=== PATIENT | male | born 1990 | race Caucasian/White ===

== ENCOUNTER 2020-05-15 09:29 | Observation (INO) | payer SELFPAY ==
[2020-05-15] MEDS ORDERED: ONDANSETRON 4 MG TAB.RAPDIS PO ONE (10:50)
[2020-05-15] MEDS ORDERED: NORMAL SALINE 1000 ML 1,000 ML IV ONE (10:50)
--- NOTE | 2020-05-15 10:50 | ER Document Report ---
ED Medical Screen (RME) - General Chief Complaint: Abdominal Pain Stated Complaint: ABDOMINAL PAIN Time Seen by Provider: 05/15/20 10:43 Mode of Arrival: Ambulatory Information source: Patient Notes: 29-year-old male presents to ED for complaint of right lower quadrant abdominal pain. He states last night it was a periumbilical and has moved to the right lower quadrant. He states he has been in here thinking he had appendicitis before and it was constipation. He has been passing gas and having bowel movements today. He states he has been nauseated with vomiting but no fever. He does smoke 15 cigarettes a day does not drink does use marijuana. Has a history of pilonidal cyst. He is alert oriented respirations regular nonlabored speaking in full sentences. He does have active bowel sounds and he has pain to palpation on the right lower quadrant radiating pain to the right lower quadrant when you palpate the rest of his stomach but no rebound tenderness. I have greeted and performed a rapid initial assessment of this patient. A comprehensive ED assessment and evaluation of the patient, analysis of test results and completion of medical decision making process will be conducted by an additional ED providers. - Related Data Allergies/Adverse Reactions: No Known Allergies Allergy (Verified 05/15/20 10:42) Physical Exam - Vital signs Vitals: Temp Pulse Resp BP Pulse Ox 98.3 F 79 18 151/92 H 99 05/15/20 09:47 05/15/20 09:47 05/15/20 09:47 05/15/20 09:47 05/15/20 09:47 Course - Vital Signs Vital signs: Temp Pulse Resp BP Pulse Ox 98.3 F 79 18 151/92 H 99 05/15/20 09:47 05/15/20 09:47 05/15/20 09:47 05/15/20 09:47 05/15/20 09:47
[2020-05-15 11:30] LABS: ABSOLUTE EOSINOPHILS # (AUTO) 0.2 10^3/uL (0.0-0.6); ABSOLUTE LYMPHOCYTES (AUTO) 2.6 10^3/uL (0.5-4.7); ABSOLUTE MONOCYTES (AUTO) 0.9 10^3/uL (0.1-1.4); ABSOLUTE NEUT (AUTO) 9.5 10^3/uL (1.7-8.2); APPEARANCE,URINE CLEAR; BASOPHILS % (AUTO) 0.3 % (0-2); BILIRUBIN,URINE NEGATIVE (NEGATIVE); COLOR,URINE YELLOW; EOSINOPHILS % (AUTO) 1.3 % (0-6); GLUCOSE, URINE NEGATIVE (NEGATIVE); HEMATOCRIT 46.3 % (37.9-51.0); HEMOGLOBIN 16.3 g/dL (13.5-17.0); KETONES,URINE TRACE mg/dL (NEGATIVE); LEUKOCYTE ESTERASE,URINE NEGATIVE (NEGATIVE); LYMPHOCYTES % (AUTO) 19.9 % (13-45); MEAN CORPUSCULAR HEMOGLOBIN 32.4 pg (27.0-33.4); MEAN CORPUSCULAR HGB CONC 35.3 g/dL (32.0-36.0); MEAN CORPUSCULAR VOLUME 92 fl (80-97); NITRITE,URINE NEGATIVE (NEGATIVE); PLATELET COUNT 284 10^3/uL (150-450); PROTEIN,URINE NEGATIVE (NEGATIVE); RED BLOOD COUNT 5.04 10^6/uL (4.35-5.55); RED CELL DISTRIBUTION WIDTH 13.9 % (11.5-14.0); SEGMENTED NEUTROPHILS % (AUTO) 71.5 % (42-78); TOTAL CELLS COUNTED % (AUTO) 100 %; URINE SPECIFIC GRAVITY 1.014; UROBILINOGEN,URINE NEGATIVE mg/dL (<2.0); WHITE BLOOD COUNT 13.3 10^3/uL (4.0-10.5)
[2020-05-15 11:48] LABS: ALBUMIN 5.2 g/dL (3.5-5.0); ALKALINE PHOSPHATASE 87 U/L (38-126); ANION GAP 10 (5-19); ASPARTATE AMINO TRANSFERASE 33 U/L (17-59); BILIRUBIN,TOTAL 0.9 mg/dL (0.2-1.3); BLOOD UREA NITROGEN 10 mg/dL (7-20); CARBON DIOXIDE 28 mmol/L (22-30); CHLORIDE 101 mmol/L (98-107); GLUCOSE 98 mg/dL (75-110); POTASSIUM 4.4 mmol/L (3.6-5.0); TOTAL PROTEIN 8.4 g/dL (6.3-8.2)
--- NOTE | 2020-05-15 13:39 | RADIOLOGY REPORT (SQ) ---
EXAM DESCRIPTION: CT ABD/PELVIS WITH IV ORAL IMAGES COMPLETED DATE/TIME: 05/15/2020 1:29 pm REASON FOR STUDY: rlq abdominal pain COMPARISON: None. TECHNIQUE: CT scan of the abdomen and pelvis performed with intravenous and oral contrast using domenica katie scanning technique with dynamic intravenous contrast injection. Images reviewed with lung, soft t issue, and bone windows. Reconstructed coronal and sagittal MPR images reviewed. Delayed images for e valuation of the urinary system also acquired. All images stored on PACS. All CT scanners at this facility use dose modulation, iterative reconstruction, and/or weight based d osing when appropriate to reduce radiation dose to as low as reasonably achievable (ALARA). [facility]: Dose Right [facility]: CareDose [facility]: Dose Right [facility]: Teradose 4D [facility]: Sentri CONTRAST TYPE AND DOSE: contrast/concentration: Isovue 350.00 mmol/ml; Total Contrast Delivered: 88. 9 ml; Total Saline Delivered: 65.9 ml RENAL FUNCTION: BUN 10 creatinine 0.65. RADIATION DOSE: CT Rad equipment meets quality standard of care and radiation dose reduction techniq ues were employed. CTDIvol: NaN - NaN mGy. DLP: 0 mGy-cm.. LIMITATIONS: None. FINDINGS: LOWER CHEST: No significant findings. No nodules or infiltrates. LIVER: Normal size. No masses. No dilated ducts. SPLEEN: Normal size. No focal lesions. PANCREAS: No masses. No significant calcifications. No adjacent inflammation or peripancreatic fluid collections. Pancreatic duct not dilated. GALLBLADDER: No identified stones by CT criteria. No inflammatory changes to suggest cholecystitis. ADRENAL GLANDS: No significant masses or asymmetry. RIGHT KIDNEY AND URETER: No solid masses. No significant calcification. No hydronephrosis or hydroure ter. LEFT KIDNEY AND URETER: No solid masses. No significant calcification. No hydronephrosis or hydrouret er. AORTA AND VESSELS: No aneurysm. No dissection. Renal arteries, SMA, celiac without stenosis. RETROPERITONEUM: No retroperitoneal adenopathy, hemorrhage or masses. BOWEL AND PERITONEAL CAVITY: No obstruction. No visualized masses. No free fluid. No inflammatory ch anges or thickening of bowel wall. APPENDIX: The appendix is mildly thickened, measuring 9 mm. Best demonstrated on coronal series 601, image 26 and axial series 3, image 54. Thickening of the wall with faint stranding in the adjacent tissues. No abnormal fluid collection. PELVIS: No significant masses. Normal bladder. No free fluid. ABDOMINAL WALL: No masses. No hernias. BONES: No significant or acute findings. OTHER: No other significant finding. IMPRESSION: MILD INFLAMMATORY CHANGES INVOLVING THE APPENDIX SUSPICIOUS FOR EARLY APPENDICITIS. NO OTHER SIGNIFICANT OR ACUTE FINDINGS IN THE ABDOMEN OR PELVIS. TECHNICAL DOCUMENTATION: JOB ID: [id number] Quality ID # [id number]: Final reports with documentation of one or more dose reduction techniques (e.g., Au tomated exposure control, adjustment of the mA and/or kV according to patient size, use of iterative reconstruction technique) 2010 [employer]- All Rights Reserved Reading location - IP/workstation name: [email or web address]
--- NOTE | 2020-05-15 14:16 | ER Document Report ---
ED GI/ - General Chief Complaint: Lower Abdominal Pain Stated Complaint: ABDOMINAL PAIN Time Seen by Provider: 05/15/20 10:43 Mode of Arrival: Ambulatory Information source: Patient Notes: 29-year-old male presents to the emergency department with a 2-day history of abdominal pain which is localized to the right lower quadrant. He notes that he has had some nausea, denies fever or diarrhea. He is concerned that he may have appendicitis. Last meal was last night. He denies allergies to medications. - Related Data Allergies/Adverse Reactions: No Known Allergies Allergy (Verified 05/15/20 10:42) Past Medical History - General Information source: Patient - Social History Smoking Status: Current Every Day Smoker Chew tobacco use (# tins/day): No Frequency of alcohol use: None Drug Abuse: Marijuana Family History: Reviewed & Not Pertinent Patient has homicidal ideation: No Review of Systems - Review of Systems Notes: Constitutional: Negative for fever. HENT: Negative for sore throat. Eyes: Negative for visual changes. Cardiovascular: Negative for chest pain. Respiratory: Negative for shortness of breath. Gastrointestinal: See HPI Genitourinary: Negative for dysuria. Musculoskeletal: Negative for back pain. Skin: Negative for rash. Neurological: Negative for headaches, weakness or numbness. 10 point ROS negative except as marked above and in HPI. Physical Exam - Vital signs Vitals: Temp Pulse Resp BP Pulse Ox 98.3 F 79 18 151/92 H 99 05/15/20 09:47 05/15/20 09:47 05/15/20 09:47 05/15/20 09:47 05/15/20 09:47 - Notes Notes: PHYSICAL EXAMINATION: Physical Exam: General: Well-nourished well-developed in no acute distress HEENT: NC/AT, pupils equal round and reactive to light, MM moist,nares clear, oropharynx clear, airway patent Neck: supple, no adenopathy, no masses. Good range of motion Lungs: clear, no wheezing, no rales no rhonchi CVS: Regular rate and rhythm no murmur gallop or rub Abdomen: Soft, active, tenderness in the right lower quadrant at McBurney's point, + guarding, positive rebound no mass Ext: No edema, clubbing or cyanosis. Neuro: Alert and responsive, moving all 4 extremities on command, cranial nerves intact, no focal findings Skin: Intact no open lesions, no rash Course - Re-evaluation Re-evalutation: 05/15/20 14:13 Differential diagnosis Appendicitis, enteritis, lymphadenitis 05/15/20 14:17 I have discussed the findings of the CT scan with the patient explained that he does have acute appendicitis. He will need to have surgical procedure to remove the appendix. The patient is in agreement with the plan. The surgeon on-call, Dr. Tirado was contacted and they will see the patient in the emergency department. - Vital Signs Vital signs: Temp Pulse Resp BP Pulse Ox 97.4 F 71 17 149/93 H 100 05/15/20 19:00 05/15/20 19:00 05/15/20 19:00 05/15/20 19:00 05/15/20 19:00 - Laboratory Result Diagrams: 05/15/20 10:50 05/15/20 10:50 Laboratory results interpreted by me: 05/15/20 05/15/20 05/15/20 10:50 10:50 10:50 WBC 13.3 H Absolute Neuts (auto) 9.5 H Total Protein 8.4 H Albumin 5.2 H Urine Ketones TRACE H Urine Blood SMALL H 05/15/20 14:13 I have reviewed laboratory data and used this information for the treatment decisions regarding the patient. - Diagnostic Test Radiology reviewed: Image reviewed, Reports reviewed Radiology results interpreted by me: 05/15/20 14:13 Abdomen/Pelvis CT 05/15/20 10:47 IMPRESSION: MILD INFLAMMATORY CHANGES INVOLVING THE APPENDIX SUSPICIOUS FOR EARLY APPENDICITIS. NO OTHER SIGNIFICANT OR ACUTE FINDINGS IN THE ABDOMEN OR PELVIS. Discharge - Discharge Clinical Impression: Right lower quadrant abdominal pain Acute appendicitis Qualifiers: Acute appendicitis type: with localized peritonitis Appendicitis gangrene presence: without gangrene Appendicitis perforation presence: without perforation Appendicitis abscess presence: without abscess Qualified Code(s): K35.30 - Acute appendicitis with localized peritonitis, without perforation or gangrene Condition: Good Disposition: ADMITTED INPATIENT Admitting Provider: Surgicalist - Dr. Tirado Unit Admitted: Surgical Floor
[2020-05-15] MEDS ORDERED: ROCURONIUM BROMIDE INJ 50 MG/5 ML VIAL IV ONE (14:34)
[2020-05-15] MEDS ORDERED: SUCCINYLCHOLINE CHLORIDE INJ 200 MG/10 ML VIAL ONE (14:34)
--- NOTE | 2020-05-15 14:54 | PDOC CONSULTATION ---
Consultation Consult Date: 05/15/20 Provider Consulted: BON QUEZADA Consult reason:: acute appendicitis History of Present Illness Admission Date/PCP: 05/15/20 14:24 Patient complains of: Abdominal pains History of Present Illness: EMELIA MARTÍNEZ is a 29 year old male started complaining of epigastric pains around 6:00 last night with nausea. The pains localized in the right lower quadrant around 10 PM and still with nausea and some chills and vomiting. Went to ED this morning and found to have acute appendicitis on the CT scan. Past Medical History Medical History: None Past Surgical History Past Surgical History: Reports: None Social History Smoking Status: Current Every Day Smoker Electronic Cigarette use?: No - Advance Directive Resuscitation Status: Full Code Family History Family History: Reviewed & Not Pertinent Parental Family History Reviewed: Yes Children Family History Reviewed: No Sibling(s) Family History Reviewed.: No Medication/Allergy Home Medications: No Home Medications 05/15/20 Allergies/Adverse Reactions: No Known Allergies Allergy (Verified 05/15/20 10:42) Review of Systems Constitutional: PRESENT: as per HPI Eyes: PRESENT: other - No visual or hearing problems Cardiovascular: PRESENT: other - no chest pains/cough Gastrointestinal: PRESENT: abdominal pain, diarrhea, nausea, vomiting Physical Exam Vital Signs: Temp Pulse Resp BP Pulse Ox 98.3 F 79 18 151/92 H 99 05/15/20 09:47 05/15/20 09:47 05/15/20 09:47 05/15/20 09:47 05/15/20 09:47 Intake & Output 05/14/20 05/15/20 05/16/20 06:59 06:59 06:59 Intake Total 1000 Balance 1000 Weight 78 kg General appearance: PRESENT: mild distress Head exam: PRESENT: atraumatic Eye exam: PRESENT: conjunctiva pink Mouth exam: PRESENT: moist Neck exam: PRESENT: full ROM Cardiovascular exam: PRESENT: RRR Pulses: PRESENT: normal radial pulses Vascular exam: PRESENT: normal capillary refill GI/Abdominal exam: PRESENT: soft, tenderness - Right lower quadrant Rectal exam: PRESENT: deferred Extremities exam: PRESENT: full ROM Musculoskeletal exam: PRESENT: full ROM Neurological exam: PRESENT: alert, oriented to person, oriented to place, oriented to situation Psychiatric exam: PRESENT: appropriate affect Skin exam: PRESENT: normal color, warm Results Laboratory Results: 05/15/20 10:50 05/15/20 10:50 05/15/20 05/15/20 05/15/20 10:50 10:50 10:50 WBC 13.3 H RBC 5.04 Hgb 16.3 Hct 46.3 MCV 92 MCH 32.4 MCHC 35.3 RDW 13.9 Plt Count 284 Seg Neutrophils % 71.5 Sodium 139.4 Potassium 4.4 Chloride 101 Carbon Dioxide 28 Anion Gap 10 BUN 10 Creatinine 0.65 Est GFR ( Amer) > 60 Glucose 98 Calcium 10.0 Total Bilirubin 0.9 AST 33 Alkaline Phosphatase 87 Total Protein 8.4 H Albumin 5.2 H Lipase 51.5 Urine Color YELLOW Urine Appearance CLEAR Urine pH 6.0 Ur Specific [place] 1.014 Urine Protein NEGATIVE Urine Glucose (UA) NEGATIVE Urine Ketones TRACE H Urine Blood SMALL H Urine Nitrite NEGATIVE Ur Leukocyte Esterase NEGATIVE Urine WBC (Auto) 0 Urine RBC (Auto) 3 Impressions: Abdomen/Pelvis CT 05/15/20 10:47 IMPRESSION: MILD INFLAMMATORY CHANGES INVOLVING THE APPENDIX SUSPICIOUS FOR EARLY APPENDICITIS. NO OTHER SIGNIFICANT OR ACUTE FINDINGS IN THE ABDOMEN OR PELVIS. Assessment & Plan - Diagnosis (1) Acute appendicitis Qualifiers: Acute appendicitis type: with localized peritonitis Appendicitis gangrene presence: without gangrene Appendicitis perforation presence: without perforation Appendicitis abscess presence: without abscess Qualified Code(s): K35.30 - Acute appendicitis with localized peritonitis, without perforation or gangrene Is this a current diagnosis for this admission?: Yes (2) Right lower quadrant abdominal pain Is this a current diagnosis for this admission?: Yes - Time Time Spent: 30 to 50 Minutes Anticipated discharge: Home Anticipated DC Timeframe: within 48 hours - Inpatient Certification Medical Necessity: Need For IV Fluids, Need for IV Antibiotics, Need for Surgery, Risk of Complication if Not Cared For in Hospital - Plan Summary Plan Summary: 29-year-old male started complaining of epigastric pains last night at 6 PM which localized in the right lower quadrant around 10 PM. There was associated nausea and chills. This morning he had some mild diarrhea and vomiting. Went to ED where a CT scan of the abdomen showed acute appendicitis. His white count slightly elevated. Is tender in the right lower quadrant. Patient for laparoscopic appendectomy. We will start IV antibiotics.
[2020-05-15] MEDS: RINGERS SOLUTION,LACTATED 1,000 ML IV PRN (19:04)
[2020-05-15] MEDS ORDERED: GLUCAGON,HUMAN RECOMB 1 MG INJ SUBCUT PRN (19:35)
[2020-05-15] MEDS ORDERED: DEXTROSE 40% GEL 15 GM TUBE PO PRN ×2 (19:35)
[2020-05-15] MEDS ORDERED: DEXTROSE 50%-WATER 25 GM/50 ML DISP.SYRIN IV PRN ×2 (19:35)
[2020-05-15] MEDS: PIPERACILLIN SODIUM/TAZOBACTAM 3.375 GM in NORMAL SALINE 100 ML IV SCH (20:34)
[2020-05-15] MEDS ORDERED: ONDANSETRON HCL INJ/PF 4 MG/2 ML SDV ONE (22:40)
[2020-05-15] MEDS ORDERED: DEXAMETHASONE SOD PHOSPHATE INJ 4 MG/1 ML VIAL ONE (22:40)
[2020-05-15] MEDS ORDERED: FENTANYL CITRATE INJ/PF 100 MCG/2 ML AMPUL ONE (22:40)
[2020-05-15] MEDS ORDERED: MIDAZOLAM 2 MG/2 ML INJ ONE (22:40)
[2020-05-15] MEDS ORDERED: KETOROLAC TROMETHAMINE 60 MG/2 ML SDV ONE (22:40)
[2020-05-15] MEDS ORDERED: MORPHINE SULFATE 10 MG/ML INJ ONE (22:41)
[2020-05-15] MEDS ORDERED: PROPOFOL INJ 200 MG/20 ML VIAL IV ONE (22:41)
[2020-05-15] MEDS ORDERED: BUPIVACAINE HCL 0.25% /EPINEPHRINE INJ/PF 30 ML SDV ONE (22:47)
[2020-05-15] MEDS ORDERED: OXYCODONE-ACETAMINOPHEN 5-325 MG TABLET PO PRN ×2 (23:34)
[2020-05-15] MEDS ORDERED: PROMETHAZINE HCL INJ 25 MG/1 ML VIAL IV PRN (23:34)
[2020-05-15] MEDS ORDERED: ONDANSETRON HCL INJ/PF 4 MG/2 ML SDV IV PRN (23:34)
[2020-05-15] MEDS ORDERED: DIPHENHYDRAMINE HCL 50 MG/ML VIAL IV PRN (23:34)
[2020-05-15] MEDS ORDERED: MORPHINE SULFATE 10 MG/ML INJ IV PRN ×2 (23:34→23:52)
[2020-05-15] MEDS ORDERED: FENTANYL CITRATE INJ/PF 100 MCG/2 ML AMPUL IV PRN ×3 (23:34)
[2020-05-15] MEDS ORDERED: MEPERIDINE HCL/PF INJ 25 MG/1 ML DISP.SYRIN IV PRN (23:34)
[2020-05-15] MEDS ORDERED: KETOROLAC TROMETHAMINE INJ/PF 30 MG/1 ML SDV IV SCH (23:45)
--- NOTE | 2020-05-16 | Operative Report ---
Operative Report DATE OF SURGERY: 05/15/20 PREOPERATIVE DIAGNOSIS: Acute appendicitis POSTOPERATIVE DIAGNOSIS: Same OPERATION: Laparoscopic appendectomy SURGEON: BON QUEZADA ANESTHESIA: GA TISSUE REMOVED OR ALTERED: Appendix COMPLICATIONS: None ESTIMATED BLOOD LOSS: 10 cc QUANTITATIVE BLOOD LOSS: 10 INTRAOPERATIVE FINDINGS: Acute appendicitis PROCEDURE: After adequate general anesthesia patient was placed in supine position and the abdomen prepped and draped in the usual sterile fashion. Appropriate timeout was then called. Infraumbilical incision made and the fascia identified and grabbed with Tonny clamps and divided between the Tonny clamps. 0 Vicryl sutures were placed as stay sutures on each side of the fascia. The fascial defect was then probed with a hemostat and dilated. The Gil trocar was then inserted to the fascia to the abdominal cavity and CO2 insufflated to a pressure about 15 mmHg. Next 2 other trochars were placed a 5 mm in the suprapubic and a 12 mm in the left lower quadrant under direct vision. The appendix was then then identified and lifted up and the distal end appears to be inflamed. The base of the appendix appears to be not involved. The mesoappendix was serially clipped and divided. Base of the appendix was then stapled with two 5 mm Endo MELVI blue load. The appendix was then pulled out through the left lower quadrant port and the port pulled out on the abdominal cavity with the appendix in it. Appendiceal stump was inspected and no evidence of active bleeding noted. All the trochars were then removed and CO2 allowed to come out of the trocar sites. The infraumbilical fascial defect was then closed with a [id number] suture using 0 Vicryl and the 2 stay sutures tied together for better closure. Local anesthesia infiltrated on the fashion on the skin incisions. The skin incisions were then closed with running subcuticular 4-0 Vicryl undyed. Steri-Strips placed over the operative sites. Needle instrument sponge count were all correct and estimated blood loss was about 10 cc. Patient tolerated procedure well and brought to the PACU in satisfactory condition extubated.
[2020-05-16] MEDS: RINGERS SOLUTION,LACTATED 1,000 ML IV PRN ×2 (01:38→06:23)
[2020-05-16] MEDS: PIPERACILLIN SODIUM/TAZOBACTAM 3.375 GM in NORMAL SALINE 100 ML IV SCH ×2 (03:29→09:34)
--- NOTE | 2020-05-16 11:56 | PDOC DISCHARGE SUMMARY ---
General - Admit/Disc Date/PCP Admission Date/Primary Care Provider: 05/15/20 14:24 Discharge Date: 05/16/20 - Discharge Diagnosis Final Diagnosis: Acute appendicitis - Additional Information Resuscitation Status: Full Code Discharge Diet: Regular Discharge Activity: Activity As Tolerated Home Medications: No Home Medications 05/15/20 History of Present Illiness History of Present Illness: EMELIA MARTÍNEZ is a 29 year old male started complaining of epigastric pains around 6:00 last night with nausea. The pains localized in the right lower quadrant around 10 PM and still with nausea and some chills and vomiting. Went to ED this morning and found to have acute appendicitis on the CT scan. Hospital Course Hospital Course: Underwent laparoscopic appendectomy on May 15, 2020 for acute appendicitis. Patient did very well postoperatively. Physical Exam Vital Signs: Temp Pulse Resp BP Pulse Ox 97.4 F 59 L 16 134/68 H 99 05/16/20 10:00 05/16/20 08:02 05/16/20 08:02 05/16/20 08:02 05/16/20 08:02 Intake & Output 05/15/20 05/16/20 05/17/20 06:59 06:59 06:59 Intake Total 4200 Output Total 15 Balance 4185 Weight 69.8 kg Results Laboratory Results: WBC 13.3 10^3/uL (4.0-10.5) H 05/15/20 10:50 RBC 5.04 10^6/uL (4.35-5.55) 05/15/20 10:50 Hgb 16.3 g/dL (13.5-17.0) 05/15/20 10:50 Hct 46.3 % (37.9-51.0) 05/15/20 10:50 MCV 92 fl (80-97) 05/15/20 10:50 MCH 32.4 pg (27.0-33.4) 05/15/20 10:50 MCHC 35.3 g/dL (32.0-36.0) 05/15/20 10:50 RDW 13.9 % (11.5-14.0) 05/15/20 10:50 Plt Count 284 10^3/uL (150-450) 05/15/20 10:50 Lymph % (Auto) 19.9 % (13-45) 05/15/20 10:50 [place] % (Auto) 7.0 % (3-13) 05/15/20 10:50 Eos % (Auto) 1.3 % (0-6) 05/15/20 10:50 Baso % (Auto) 0.3 % (0-2) 05/15/20 10:50 Absolute Neuts (auto) 9.5 10^3/uL (1.7-8.2) H 05/15/20 10:50 Absolute Lymphs (auto) 2.6 10^3/uL (0.5-4.7) 05/15/20 10:50 Absolute Monos (auto) 0.9 10^3/uL (0.1-1.4) 05/15/20 10:50 Absolute Eos (auto) 0.2 10^3/uL (0.0-0.6) 05/15/20 10:50 Absolute Basos (auto) 0.0 10^3/uL (0.0-0.2) 05/15/20 10:50 Seg Neutrophils % 71.5 % (42-78) 05/15/20 10:50 Sodium 139.4 mmol/L (137-145) 05/15/20 10:50 Potassium 4.4 mmol/L (3.6-5.0) 05/15/20 10:50 Chloride 101 mmol/L (98-107) 05/15/20 10:50 Carbon Dioxide 28 mmol/L (22-30) 05/15/20 10:50 Anion Gap 10 (5-19) 05/15/20 10:50 BUN 10 mg/dL (7-20) 05/15/20 10:50 Creatinine 0.65 mg/dL (0.52-1.25) 05/15/20 10:50 Est GFR ( Amer) > 60 (>60) 05/15/20 10:50 Est GFR (MDRD) Non-Af > 60 (>60) 05/15/20 10:50 Glucose 98 mg/dL (75-110) 05/15/20 10:50 Calcium 10.0 mg/dL (8.4-10.2) 05/15/20 10:50 Total Bilirubin 0.9 mg/dL (0.2-1.3) 05/15/20 10:50 Direct Bilirubin 0.0 mg/dL (0.0-0.4) 05/15/20 10:50 Neonat Total Bilirubin Not Reportable 05/15/20 10:50 Neonat Direct Bilirubin Not Reportable 05/15/20 10:50 Neonat Indirect Bili Not Reportable 05/15/20 10:50 AST 33 U/L (17-59) 05/15/20 10:50 ALT 22 U/L (<50) 05/15/20 10:50 Alkaline Phosphatase 87 U/L (38-126) 05/15/20 10:50 Total Protein 8.4 g/dL (6.3-8.2) H 05/15/20 10:50 Albumin 5.2 g/dL (3.5-5.0) H 05/15/20 10:50 Lipase 51.5 U/L (23-300) 05/15/20 10:50 Urine Color YELLOW 05/15/20 10:50 Urine Appearance CLEAR 05/15/20 10:50 Urine pH 6.0 (5.0-9.0) 05/15/20 10:50 Ur Specific [place] 1.014 05/15/20 10:50 Urine Protein NEGATIVE mg/dL (NEGATIVE) 05/15/20 10:50 Urine Glucose (UA) NEGATIVE mg/dL (NEGATIVE) 05/15/20 10:50 Urine Ketones TRACE mg/dL (NEGATIVE) H 05/15/20 10:50 Urine Blood SMALL (NEGATIVE) H 05/15/20 10:50 Urine Nitrite NEGATIVE (NEGATIVE) 05/15/20 10:50 Urine Bilirubin NEGATIVE (NEGATIVE) 05/15/20 10:50 Urine Urobilinogen NEGATIVE mg/dL (<2.0) 05/15/20 10:50 Ur Leukocyte Esterase NEGATIVE (NEGATIVE) 05/15/20 10:50 Urine WBC (Auto) 0 /HPF 05/15/20 10:50 Urine RBC (Auto) 3 /HPF 05/15/20 10:50 Urine Mucus (Auto) OCC /LPF 05/15/20 10:50 Urine Ascorbic Acid NEGATIVE (NEGATIVE) 05/15/20 10:50 SARS-CoV-2 (PCR) NEGATIVE (NEGATIVE) 05/15/20 18:00 Impressions: Abdomen/Pelvis CT 05/15/20 10:47 IMPRESSION: MILD INFLAMMATORY CHANGES INVOLVING THE APPENDIX SUSPICIOUS FOR EARLY APPENDICITIS. NO OTHER SIGNIFICANT OR ACUTE FINDINGS IN THE ABDOMEN OR PELVIS. Plan Time Spent: Less than 30 Minutes
[2020-05-16 12:31] VITALS: BP 133/68
--- NOTE | 2020-05-18 07:59 | PDOC H&P ---
History of Present Illness Admission Date/PCP: 05/15/20 14:24 Patient complains of: Abdominal pain History of Present Illness: EMELIA MARTÍNEZ is a 29 year old male started complaining of epigastric pains around 6:00 last night with nausea. The pains localized in the right lower quadrant around 10 PM and still with nausea and some chills and vomiting. Went to ED this morning and found to have acute appendicitis on the CT scan. Past Medical History Medical History: None Psychiatric Medical History: Denies: Depression Past Surgical History Past Surgical History: Reports: None Social History Smoking Status: Current Every Day Smoker Electronic Cigarette use?: No Drugs: Marijuana - Advance Directive Resuscitation Status: Full Code Family History Family History: Reviewed & Not Pertinent Parental Family History Reviewed: Yes Children Family History Reviewed: No Sibling(s) Family History Reviewed.: No Medication/Allergy Home Medications: No Home Medications 05/15/20 Allergies/Adverse Reactions: No Known Allergies Allergy (Verified 05/15/20 10:42) Review of Systems Constitutional: PRESENT: as per HPI Gastrointestinal: PRESENT: abdominal pain, nausea Physical Exam Vital Signs: Temp Pulse Resp BP Pulse Ox 97.8 F 61 16 133/68 H 97 05/16/20 12:30 05/16/20 12:30 05/16/20 12:30 05/16/20 12:30 05/16/20 12:30 Intake & Output 05/17/20 05/18/20 05/19/20 06:59 06:59 06:59 Intake Total 1400 Balance 1400 General appearance: PRESENT: mild distress Eye exam: PRESENT: conjunctiva pink Neck exam: PRESENT: full ROM Respiratory exam: PRESENT: clear to auscultation charles Cardiovascular exam: PRESENT: RRR Pulses: PRESENT: normal radial pulses Vascular exam: PRESENT: normal capillary refill GI/Abdominal exam: PRESENT: soft, tenderness - Right lower quadrant Neurological exam: PRESENT: alert, oriented to person, oriented to place, oriented to time, oriented to situation Psychiatric exam: PRESENT: appropriate affect Skin exam: PRESENT: normal color, warm Results Laboratory Results: 05/15/20 10:50 05/15/20 10:50 Impressions: Abdomen/Pelvis CT 05/15/20 10:47 IMPRESSION: MILD INFLAMMATORY CHANGES INVOLVING THE APPENDIX SUSPICIOUS FOR EARLY APPENDICITIS. NO OTHER SIGNIFICANT OR ACUTE FINDINGS IN THE ABDOMEN OR PELVIS. Assessment & Plan - Diagnosis (1) Acute appendicitis Qualifiers: Acute appendicitis type: with localized peritonitis Appendicitis gangrene presence: without gangrene Appendicitis perforation presence: without perforation Appendicitis abscess presence: without abscess Qualified Code(s): K35.30 - Acute appendicitis with localized peritonitis, without perforation or gangrene Is this a current diagnosis for this admission?: Yes (2) Right lower quadrant abdominal pain Is this a current diagnosis for this admission?: Yes - Time Time Spent: 30 to 50 Minutes Anticipated Discharge Disposition: Home, Self Care Anticipated Discharge Timeframe: within 36 hours - Inpatient Certification Medical Necessity: Need For IV Fluids, Need for IV Antibiotics, Need for Surgery - Plan Summary Plan Summary: 29-year-old male complaining of abdominal pains the night prior to admission. The pain is localized to the right lower quadrant several hours after onset of epigastric pains. CT scan of the abdomen in the ED showed acute appendicitis. Patient for laparoscopic appendectomy today.
== END 2020-05-16 13:30 | disposition home or self-care (01) ==
LOC: ER 09:29 → EH 14:24 → INTOOBSV 14:24 → 4S 18:09
PROVIDERS: ATTEND Surgery
DX: K35.30 Acute appendicitis with localized peritonitis, without perforation or gangrene (principal); Z03.818 Encounter for observation for suspected exposure to other biological agents ruled out; F17.210 Nicotine dependence, cigarettes, uncomplicated
CPT/HCPCS: 99285; 96360; 36415; 87040; 83690; 85025; 87635; 80053; 81001; 88304 ×2; 74177; 99140; 00840; 44970; J2250; J3490 ×2; J1100; J1885; S0119; J3010; J2270; J0330; J2405; J7050 ×2; J7030; J7120 ×2; J2704; J2543 ×2; C9803; 840